=== PATIENT | female | born 1985 | race American Indian/Alaskan Native ===

== ENCOUNTER 2016-07-07 19:28 | Emergency (ER) | payer MEDICAID ==
[2016-07-07] MEDS ORDERED: TYLENOL ONE (20:14)
[2016-07-07] MEDS ORDERED: TYLENOL PO ONE (20:16)
[2016-07-07 22:02] LABS: Basophils % (Auto) 1.3 % (0.0-1.8); Eosinophils % (Auto) 0.5 % (0.0-4.3); Hematocrit 42.3 % (30.3-42.9); Hemoglobin 13.9 gm/dl (10.1-14.3); Mean Corpuscular HGB Conc 33 % (30-34); Mean Corpuscular Hemoglobin 29 pg (28-32); Mean Corpuscular Volume 89 fl (79-97); Red Blood Count 4.77 M/mm3 (3.65-5.03); Red Cell Distribution Width 13.3 % (13.2-15.2); White Blood Count 7.5 K/mm3 (4.5-11.0)
[2016-07-07 22:18] LABS: Platelet Count 192 K/mm3 (140-440)
[2016-07-07 22:22] LABS: Anion Gap 20 mmol/L; BUN/Creatinine Ratio 14.28; Blood Urea Nitrogen 10 mg/dL (7-17); Calcium 9.9 mg/dL (8.4-10.2); Carbon Dioxide 26 mmol/L (22-30); Chloride 97.5 mmol/L (98-107); Glucose 90 mg/dL (65-100); Potassium 3.7 mmol/L (3.6-5.0); Sodium 140 mmol/L (137-145)
--- NOTE | 2016-07-08 08:24 | Emergency Department Report ---
HPI - General Chief Complaint: Chest Pain Time Seen by Provider: 07/08/16 08:04 - HPI HPI: Chief complaint: Left hip pain and chest pain HPI: Patient is a 31-year-old female with a history of hypertension who ran out of her [employer] 2 days ago. 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 Patient states yesterday it got even worse and radiates down her leg. Patient states yesterday afternoon she had 20 minutes of shortness of breath and chest tightness. Patient states she's had several episodes through the night lasting only a few minutes. Patient states she's had this before and was diagnosed with anxiety. Patient states it seems to be worse when her leg is hurting. Mode of arrival: private car Source: Patient Began: See above Duration: See above Context: See above Quality: Sharp Severity: 10 out of 10 Improved with: Nothing Worsened with: Leg movement and lifting Associated signs and symptoms: Anxiety, no numbness or weakness. No back pain. ED Past Medical Hx - Past Medical History Previous Medical History?: Yes Hx Hypertension: Yes - Surgical History Past Surgical History?: Yes Additional Surgical History: x3 - Social History Smoking Status: Never Smoker Substance Use Type: None - Medications Home Medications: Home Medications Medication Instructions Recorded Confirmed Last Taken Type traMADol [Ultram 50 MG tab] 50 mg PO Q6HR PRN #20 tablet 07/08/16 Unknown Rx ED Review of Systems ROS: Stated complaint: GROIN/CHEST PAIN Other details as noted in HPI ROS Constitutional: No fever ENT: No uri symptoms Cardiovascular: chest pain Respiratory: No cough GI: No nausea vomiting or diarrhea : No dysuria frequency or urgency, Skin: No rash Neuro: No focal weakness or numbness Psych: No depression Sylvester/lymph: No edema Physical Exam - Physical Exam Vital Signs: Vital Signs 07/07/16 07/07/16 20:09 20:20 Temperature 98.4 F Pulse Rate 63 Respiratory 16 18 Rate Blood Pressure 152/92 O2 Sat by Pulse 100 Oximetry Physical Exam: GENERAL: The patient is a thin -Chinese female no acute distress. HEENT: Normocephalic. Atraumatic. Extraocular motions are intact. Patient has moist mucous membranes. NECK: Supple. No meningitic signs are noted. There is no adenopathy noted. CHEST/LUNGS: Clear to auscultation. There is no respiratory distress noted. HEART/CARDIOVASCULAR: Regular. There is no tachycardia. There is no gallop rub or murmur. ABDOMEN: Abdomen is soft, nontender. Patient has normal bowel sounds. There is no abdominal distention. There is no inguinal hernia noted. SKIN: There is no rash. There is no edema. There is no diaphoresis. NEURO: The patient is awake, alert, and oriented. The patient is cooperative. The patient has no focal neurologic deficits. The patient has normal speech. MUSCULOSKELETAL: Patient is tender left groin area with pain to range of motion of her hip. Back is nontender buttocks is nontender. Negative straight leg raise neurovascular intact ED Course Vital Signs 07/07/16 07/07/16 20:09 20:20 Temperature 98.4 F Pulse Rate 63 Respiratory 16 18 Rate Blood Pressure 152/92 O2 Sat by Pulse 100 Oximetry ED Medical Decision Making - Lab Data Result diagrams: 07/07/16 21:50 07/07/16 20:16 Laboratory Tests 07/07/16 07/07/16 07/08/16 20:16 23:25 02:56 Troponin T < 0.010 < 0.010 < 0.010 - EKG Data -: EKG Interpreted by Or EKG shows normal: sinus rhythm (with first-degree AV block) Rate: normal (66) - EKG Data When compared to previous EKG there are: previous EKG unavailable Interpretation: normal EKG (except for first-degree AV block) 07/08/16 08:28 Repeat EKG is unchanged. - Radiology Data Radiology results: report reviewed (x-ray of left hip within normal limits.) Critical care attestation.: If time is entered above; I have spent that time in minutes in the direct care of this critically ill patient, excluding procedure time. ED Disposition Clinical Impression: Strain of left inguinal muscle Qualifiers: Encounter type: initial encounter Qualified Code(s): S39.013A - Strain of muscle, fascia and tendon of pelvis, initial encounter Chest pain Qualifiers: Chest pain type: unspecified Qualified Code(s): R07.9 - Chest pain, unspecified Disposition: DISCHARGED TO HOME OR SELFCARE Is pt being admited?: No Does the pt Need Aspirin: No Condition: Stable Instructions: Chest Pain (ED), Muscle Strain (ED), Groin Pain (ED) Additional Instructions: Follow-up with your doctor or the orthopedist to determine if you need more time off from work. Prescriptions: traMADol [Ultram 50 MG tab] 50 mg PO Q6HR PRN #20 tablet PRN Reason: Pain Referrals: PRIMARY CARE, [Primary Care Provider] - 3-5 Days [facility] [Provider Group] - 3-5 Days ([facility] is a cardiology group for you to follow-up with.) DREAD LAW MD [Staff Physician] - 3-5 Days (Dr. Law is an orthopedist for you to follow up with for your hip pain) Forms: Work/School Release Form(ED) Time of Disposition: 09:35
[2016-07-08 08:48] VITALS: BP 126/66
--- NOTE | 2016-07-08 09:09 | XRay Report ---
Left hip 2 views: History: Pain to left hip. Findings: No bony or articular abnormality. No fracture or dislocation. No soft tissue calcification. Impression: Essentially negative left hip.
== END 2016-07-08 09:55 | disposition home or self-care (01) ==
LOC: ED 19:28
DX: S39.013A Strain of muscle, fascia and tendon of pelvis, initial encounter (principal); R07.9 Chest pain, unspecified; I10 Essential (primary) hypertension; X50.9XXA Other and unspecified overexertion or strenuous movements or postures, initial encounter; Y93.89 Activity, other specified; Y92.89 Other specified places as the place of occurrence of the external cause; Y99.8 Other external cause status; Z88.6 Allergy status to analgesic agent; Z88.0 Allergy status to penicillin
CPT/HCPCS: 36415; 80048; 84439; 84443; 84484; 85025; 93005; 93010